=== PATIENT | male | born 1950 | race Two or more races ===

== ENCOUNTER 2022-09-07 03:30 | Emergency (ER) | payer OTHER ==
[~2022-09-07] VITALS: Ht 165.1 cm; Wt 60.3 kg
--- NOTE | 2022-09-07 03:53 | NUR ---
[facility] FOR C/O UNWITNESSED FALL AND SNF WITH LACERATION TO HEAD. -LOSS OF CONSCIOUSNES PER PATIENT. ENDORSES HE SLIPPED AND FELL. PT AWAKE AND ALERT ANSWERING QUESTIONS APPROPRIATELY. MD WAS AT BEDSIDE FOR EVAL.
--- NOTE | 2022-09-07 03:57 | NUR ---
[facility] AT BEDSIDE FOR WOUND CARE
--- NOTE | 2022-09-07 06:16 | NUR ---
[facility] CALLED FOR TRANSFER ETA 90 MINUTES
--- NOTE | 2022-09-07 07:07 | NUR ---
REPORT GIVE TO VI AT [facility]
--- NOTE | 2022-09-07 07:07 | NUR ---
[facility] AT BEDSIDE FOR PT TRANSPORT BACK TO HIS FACILITY. REPORT GIVEN WELL DISCHARGE PACKET.
--- NOTE | 2022-09-07 07:10 | NUR ---
[facility] AT BEDSIDE FOR PICKUP
[2022-09-07 07:20] VITALS: BP 131/84
--- NOTE | 2022-09-07 07:20 | NUR ---
PT BEING TRANSPORTED BACK TO SNF VIA [facility]. PT CHART AND RESULTS PROVIDED TO [facility] [employer].
== END 2022-09-07 07:21 ==
LOC: ER 03:32
DX: S01.01XA Laceration without foreign body of scalp, initial encounter (principal); W01.0XXA Fall on same level from slipping, tripping and stumbling without subsequent striking against object, initial encounter; Y93.89 Activity, other specified; Y92.89 Other specified places as the place of occurrence of the external cause; Y99.8 Other external cause status
CPT/HCPCS: 70450-TC